=== PATIENT | female | born 1950 | race Caucasian/White ===

== ENCOUNTER 2019-03-24 12:42 | Inpatient (IN) | payer OTHER ==
[~2019-03-24] VITALS: Ht 149.9 cm; Wt 108.3 kg
[2019-03-24] MEDS: SODIUM CHLORIDE 0.9% 1,000 ML IV SCH
[2019-03-24] MEDS ORDERED: MORPHINE SULFATE 4 MG/ML SYR/VIAL IV ONE (13:00)
[2019-03-24] MEDS ORDERED: ONDANSETRON HCL 4 MG/2 ML VIAL IV ONE (13:00)
[2019-03-24 13:08] LABS: Basophils # (auto) 0.1 uL; Basophils % (auto) 0.7 % (0.0-2.0); Eosinophils # (auto) 0.6 uL; Eosinophils % (auto) 6.7 % (0.0-7.0); Hematocrit 45.9 % (36.0-46.0); Hemoglobin 15.2 g/dL (12.2-16.2); Lymphocytes # (auto) 1.9 uL; Lymphocytes % (auto) 21.6 % (10.0-50.0); Mean Corpuscular Hemoglobin 28.3 pg (28.0-32.0); Mean Corpuscular Hgb Conc. 33.2 g/dL (32.0-36.0); Mean Corpuscular Volume 85.4 fL (80.0-100.0); Monocytes # (auto) 0.5 uL; Neutrophils # (auto) 5.8 uL; Nucleated Red Blood Cells % 0.1 %; Platelet Count (auto) 348 10^3/uL (140-450); Red Blood Cells 5.38 10^6/uL (4.0-5.20); Red Cell Distribution Width 15.6 % (11.8-14.3); White Blood Cell 8.9 10^3/uL (4.4-10.8)
[2019-03-24 13:25] LABS: INR < 0.93 (0.9-1.15); Partial Thromboplastin Time 23.2 sec (23.64-32.05)
[2019-03-24 13:36] LABS: Albumin 3.6 g/dL (3.4-5.0); Calcium 9.2 mg/dL (8.5-10.1); Magnesium 2.5 mg/dL (1.6-2.6); Potassium 4.5 mmol/L (3.5-5.1)
[2019-03-24 13:39] LABS: Bilirubin, Total 0.3 mg/dL (0.2-1.0); Total Protein 7.2 g/dL (6.4-8.2)
[2019-03-24] MEDS ORDERED: MORPHINE SULF INJ 2 MG/ML SYRINGE 1ML IV PRN (15:30)
[2019-03-24] MEDS ORDERED: NITROGLYCERIN 0.4 MG SL TAB SL PRN (15:30)
--- NOTE | 2019-03-24 17:10 | NUR ---
Telemetry admit from ER Patient admitted to Telemetry unit. Patient oriented to primary RN, unit, room, bed, and unit policies regarding patient care and visiting hours. Patient now on continuous telemetry monitoring, tele box #4 and telemetry reading on arrival to unit is SR in the 80's. Patient placed on bedside oxygen, weighed by bed scale and encouraged to call if they need something. Bed in lowest, locked position with side rails up x2. Fall precautions in place and call light within reach. All questions and concerns addressed, patient verbalized understanding.Will continue to monitor Q1hr/PRN.
[2019-03-24 17:11] LABS: Urine Bacteria MANY /hpf (None Seen); Urine Blood Negative /uL (Negative); Urine Mucus FEW (None Seen); Urine Specific Gravity 1.018 (1.001-1.035); Urine WBC 31 /hpf (0 - 5)
[2019-03-24 17:21] VITALS: BP 142/73
--- NOTE | 2019-03-24 17:50 | NUR ---
PAGED Paged on-call hospitalist regarding antibiotic for UTI and if patient should be on fluids considering she will be NPO at midnight. Awaiting call back.
[2019-03-24 18:10] VITALS: BP 142/73
[2019-03-24] MEDS ORDERED: OME20GT GT (18:34)
[2019-03-24] MEDS ORDERED: MELO1TAB56 PO (18:34)
--- NOTE | 2019-03-24 18:58 | NUR ---
EYE PAIN Patient c/o right eye pain, "it feels like something is in my eye". Flushed eye out and lifted up right upper lid, foreign body seen and removed with sterile q-tip. Patient states "it feels much better".
--- NOTE | 2019-03-24 19:22 | NUR ---
CLOSING NOTE Endorsed care of patient to NOC Naye CLARKE.
--- NOTE | 2019-03-24 19:50 | NUR ---
Opening Shift Note Assumed care of patient, awake and alert. No S/S of distress/SOB or pain. Instructed on POC and to call for assist PRN, will continue to monitor for changes Q1hr and PRN.
[2019-03-24 20:00] VITALS: BP 98/57
[2019-03-24 21:30] VITALS: BP 91/57
[2019-03-24] MEDS ORDERED: SODIUM CHLORIDE 0.9% 1,000 ML IV ONE (21:30)
--- NOTE | 2019-03-24 22:19 | NUR ---
NEW ORDERS RECEIVED FROM DR. Lamien SHAY. NS AT 100ML IV . LEVAQUIN 500MG IV DAILY. ORDERS READ BACK.
[2019-03-24] MEDS ORDERED: LEVOFLOXACIN 500MG 100 ML IV ONE (22:45)
[2019-03-25 05:00] VITALS: BP 116/65
--- NOTE | 2019-03-25 07:15 | NUR ---
REPORT GIVEN TO JACOBY CLARKE
--- NOTE | 2019-03-25 07:22 | NUR ---
OPENING NOTE Assumed care of patient from NOC RNNaye. Patient awake and alert with no S/S of distress/SOB. C/O of left leg pain 7/10 on adult pain scale, will administer prn pain medication as ordered. Nasal cannula in place, connected to 2L O2. Fay catheter intact/patent and hung below bed. Instructed on POC and to call for assist PRN, verbalized understanding. Bed in lowest, locked position with side rails up x2. Fall precautions in place and call light within reach. Will continue to monitor for changes Q1hr and PRN.
[2019-03-25 07:45] VITALS: BP 98/57
[2019-03-25] MEDS: SODIUM CHLORIDE 0.9% 1,000 ML IV SCH ×2 (08:50→18:52)
[2019-03-25] MEDS: MORPHINE SULF INJ 2 MG/ML SYRINGE 1ML IV PRN ×2 (08:50→15:39)
[2019-03-25] MEDS: ONDANSETRON HCL 4 MG/2 ML VIAL IV PRN ×2 (08:51→15:39)
[2019-03-25 09:00] VITALS: BP 122/66
[2019-03-25] MEDS ORDERED: ENOXAPARIN SOD 30 MG/0.3 ML SYRINGE SC SCH (10:00)
[2019-03-25] MEDS: FAMOTIDINE 20 MG TAB PO SCH (10:04)
[2019-03-25 10:05] LABS: Basophils # (auto) 0 uL; Basophils % (auto) 0.3 % (0.0-2.0); Eosinophils # (auto) 0.4 uL; Eosinophils % (auto) 4.5 % (0.0-7.0); Hematocrit 44.4 % (36.0-46.0); Hemoglobin 14.7 g/dL (12.2-16.2); Lymphocytes # (auto) 1.5 uL; Lymphocytes % (auto) 17.7 % (10.0-50.0); Mean Corpuscular Hemoglobin 28.5 pg (28.0-32.0); Mean Corpuscular Hgb Conc. 33.1 g/dL (32.0-36.0); Monocytes # (auto) 0.5 uL; Monocytes % (auto) 6.5 % (0.0-12.0); Neutrophils # (auto) 5.8 uL; Nucleated Red Blood Cells % 0.1 %; Platelet Count (auto) 294 10^3/uL (140-450); Red Blood Cells 5.17 10^6/uL (4.0-5.20); Red Cell Distribution Width 16.2 % (11.8-14.3); White Blood Cell 8.2 10^3/uL (4.4-10.8)
[2019-03-25 10:20] LABS: INR 0.97 (0.9-1.15); Partial Thromboplastin Time 25.1 sec (23.64-32.05)
[2019-03-25 10:26] LABS: Albumin 3.1 g/dL (3.4-5.0); Calcium 8.4 mg/dL (8.5-10.1); Potassium 4.4 mmol/L (3.5-5.1)
[2019-03-25 10:39] LABS: BUN/Creatinine Ratio 18.4; Total Protein 6.4 g/dL (6.4-8.2)
[2019-03-25 10:42] LABS: Bilirubin, Total 0.4 mg/dL (0.2-1.0)
[2019-03-25 13:00] VITALS: BP 110/50
--- NOTE | 2019-03-25 16:10 | NUR ---
PT Per PT, Vern, patient in "a lot of pain" with movement. States that recent morphine administered did not help enough with pain, "she is fine if she is laying still but the minute she tries to move the pain is too severe". Recommends patient stay additional day and will attempt to "work with patient tomorrow".
--- NOTE | 2019-03-25 16:13 | NUR ---
Discharge planning per consult, patient has orders to dc to SNF upon discharge. Referral faxed to [facility], placed a follow up call, spoke to Castillo and was advised that they will accept this patient to room [address] Joe Felder. Obtained auth for [facility]([phone]/fax [phone]. Please fax PT notes when available to both [facility] and [facility] [phone]. Auth obtained for [facility] transportation upon discharge-[id number] [phone]). Please contact telephone station repairer [facility] [place] - at [phone] if you have any additional questions or concerns. Addendum: 03/25/19 at 1626 by ROSENDA KISER Amended: Links added.
[2019-03-25 17:00] VITALS: BP 114/67
--- NOTE | 2019-03-25 17:16 | NUR ---
AWARE Dr. Correa aware of PT recommendations, agrees to holding off discharge until tomorrow 03/26/19.
[2019-03-25] MEDS: ACETAMINOPHEN 325 MG TAB PO PRN (17:25)
[2019-03-25] MEDS: LEVOFLOXACIN 250MG 50 ML IV SCH (21:28)
[2019-03-25 22:00] VITALS: BP 99/57
[2019-03-26] MEDS: SODIUM CHLORIDE 0.9% 1,000 ML IV SCH ×2 (04:28→16:51)
[2019-03-26 05:00] VITALS: BP 135/71
--- NOTE | 2019-03-26 07:37 | NUR ---
REPORT GIVEN TO DAY SHIFT RN
--- NOTE | 2019-03-26 07:45 | NUR ---
RECEIVED PATIENT ALERT AND ORIENTED X4, NOT IN DISTRESS, DENIED PAIN, CLEAR LUNG SOUNDS IN BILATERAL LUNG LOBES, RR=18, DEEP BREATHING AND COUGHING ENCOURAGED, DEMONSTRATED UNDERSTANDING, HEAR PHYLLIS=84 SR ON TELE MONITOR, DENIED CP AND SOB, ABDOMEN SOFT WITH ACTIVE BS, LAST BM=03/24/19 REPORTED, DEAN CATH IN PLACE PATENT, DRAINING CLEAR YELLOW URINE, KEEP LT. HIP IMMOBILIZED, SKIN INTACT WARM TO TOUCH, RESTING ON BED, DENIED PAIN AT THIS MOMENT, HEAD OF BED ELEVATED, BED ON LOWER POSITION, RAILS UP X2, CALL LIGHT ON REACH, PENDING D/C ORDERED, WILL CONTINUE MONITORING.
[2019-03-26 08:00] VITALS: BP 127/64
[2019-03-26 08:14] VITALS: BP 127/64
[2019-03-26] MEDS: FAMOTIDINE 20 MG TAB PO SCH (09:35)
[2019-03-26] MEDS: ENOXAPARIN SOD 40 MG/0.4 ML SYRINGE SC SCH (09:35)
[2019-03-26] MEDS: MORPHINE SULF INJ 2 MG/ML SYRINGE 1ML IV PRN (09:36)
[2019-03-26] MEDS: ONDANSETRON HCL 4 MG/2 ML VIAL IV PRN (09:36)
--- NOTE | 2019-03-26 10:25 | NUR ---
UNABLE TO WORK WITH PT, PRN PAIN MEDICATION WAS GIVEN PRIOR PT ACTIVITY, POOR TOLERANCE NOTED, DR. ESPARZA WAS CONTACTED FOR D/C FOLLOW UP, WILL CONTINUE MONITORING.
[2019-03-26 13:00] VITALS: BP 117/70
--- NOTE | 2019-03-26 13:00 | NUR ---
D/C HOLD REPORTED BY , TOLERATED LUNCH TRAY WELL, RESTING ON BED, WATCHING TV, WILL CONTINUE MONITORING.
[2019-03-26 16:49] VITALS: BP 111/70
[2019-03-26] MEDS: HYDROcodone-ACET 5/325MG TAB PO PRN (16:50)
--- NOTE | 2019-03-26 17:51 | NUR ---
TOLERATED RANGE OF MOTION WITH ASSISTANCE, PARTIAL BED BATH PROVIDED, SKIN CLEANED AND DRY, APPLIED Z-GUARD CREAM ON BACK AND SACRUM, TOLERATED AND COOPERATED WELL, WILL CONTINUE MONITORING.
--- NOTE | 2019-03-26 19:30 | NUR ---
Opening Shift Note Assumed care of patient, awake and alert. Watching TV. No S/S of distress/SOB or pain.Encouraged repositioning from side to side. IV patent and infusing per orders. Instructed on POC and to call for assist PRN, will continue to monitor for changes Q1hr and PRN.
[2019-03-26 22:28] VITALS: BP 102/66
[2019-03-26] MEDS: LEVOFLOXACIN 250MG 50 ML IV SCH (23:00)
[2019-03-27] MEDS: SODIUM CHLORIDE 0.9% 1,000 ML IV SCH ×3 (00:30→20:30)
[2019-03-27 06:03] VITALS: BP 135/74
--- NOTE | 2019-03-27 08:00 | NUR ---
ASSESSMENT NOTE PATIENT IS ALERT ORIENTED X4, RESTING IN BED COMFORTABLY, ABLE TO VERBALIS HER NEEDS, ABLE TO SELF REPOSITION NEEDED, CALL LIGHT WITHIN REACH, PT ON PAIN MANAGEMENT AT ALL TIMES NEEDED
[2019-03-27 08:49] VITALS: BP 130/79
[2019-03-27] MEDS: ENOXAPARIN SOD 40 MG/0.4 ML SYRINGE SC SCH (09:05)
[2019-03-27] MEDS: FAMOTIDINE 20 MG TAB PO SCH (09:05)
[2019-03-27] MEDS: HYDROcodone-ACET 5/325MG TAB PO PRN (09:06)
--- NOTE | 2019-03-27 09:15 | NUR ---
DR ESPARZA IS HERE FOLLOWING UP ON PT, INFORM ME TO HAVE PATIENT TO BE TRANSFERRED TO SNF
--- NOTE | 2019-03-27 09:45 | NUR ---
PHYSICAL THERAPY AT BED SIDE ASSISTING PT TO GET OUT OF BED, TO SIT ON CHAIR AT BED SIDE
--- NOTE | 2019-03-27 11:10 | NUR ---
PHYSICAL THERAPY NOTES FAXED TO [facility]
[2019-03-27] MEDS: ONDANSETRON HCL 4 MG/2 ML VIAL IV PRN (11:27)
--- NOTE | 2019-03-27 11:27 | NUR ---
BACK TO BED WITH 2 PHYSICAL THERAPY ASSISTANCE, PT TOLERATED WELL.
--- NOTE | 2019-03-27 12:21 | NUR ---
CALLED [facility], REPORT GIVEN TO LUIS ANGEL Chakraborty WITH ALL PATIENT'S UPDATE
[2019-03-27 12:25] VITALS: BP 128/70
--- NOTE | 2019-03-27 12:25 | NUR ---
CALLED [facility] A BRIEF MESSAGE LEFT TO HAVE THEM CALL US BACK
--- NOTE | 2019-03-27 13:05 | NUR ---
[facility] A BRIEF MESSAGE LEFT TO HAVE THEM CALL ME BACK TO ARRANGE TIME OF CASHIER AND WAITER/WAITRESS
--- NOTE | 2019-03-27 14:26 | NUR ---
CALLED [facility] AGAIN, A BRIEF MESSAGE LEFT TO HAVE THEM CALL US BACK
--- NOTE | 2019-03-27 16:29 | NUR ---
CALLED [facility] AT [phone] MESSAGE LEFT TO CALL US BACK
--- NOTE | 2019-03-27 16:33 | NUR ---
SHARIF FROM [facility] CALLED BACK, TRY TO CALL THE [facility], THERE WAS NO ANSWER, SAID ITS POSSIBLE THAT THEY ARE CLOSED. AND THERE IS NOTHING WE CAN DO
--- NOTE | 2019-03-27 16:46 | NUR ---
SPOKE WITH DR YOUSSEF OVER THE PHONE, MADE AWARE THAT DID SPOKE WITH SHARIF IN [facility], AND THE [facility] IS CLOSED, SAID TO CALL OUR OWN INTERACTIVE VIDEO TECHNICIAN OPERATING ROOM NURSE
--- NOTE | 2019-03-27 16:50 | NUR ---
PAGE MARBLE CUTTER VAMP CUT OUT WORKER
[2019-03-27 16:59] VITALS: BP 95/65
--- NOTE | 2019-03-27 17:05 | NUR ---
MESHA FROM DIRECTOR TALENT YE [employer] BACK SAID TO CALL [facility]
--- NOTE | 2019-03-27 17:23 | NUR ---
CALLED [facility], SPOKE WITH ELDER, TRANSPORATION WILL BE HERE AT 193
[2019-03-27] MEDS: ACETAMINOPHEN 325 MG TAB PO PRN (18:23)
--- NOTE | 2019-03-27 18:50 | NUR ---
PATIENT FOUND SHOCKING ON A SMALL PIECE OF TURKEY, PT WENT IN A SYSTOLE FOR 5 SECONDS, FOUND ON 78% SATURATION ON ROOM AIR, CALLED REPARATORY STAT, OXYGEN MASK APPLIED, PATIENT RECOVER QUICKLY FROM THE ASPIRATION EPISODE
--- NOTE | 2019-03-27 19:10 | NUR ---
TRY TO WAEN PATIENT FROM THE OXYGEN, SATURATION WENT DOWN FROM 97% TO 84, OXYGEN APPLIED BACK ON
--- NOTE | 2019-03-27 19:15 | NUR ---
[facility] ARE, MADE AWARE THAT PT IS STAYING, CALLED THE DISPATCH, SPOKE WITH NATALY
--- NOTE | 2019-03-27 19:20 | NUR ---
PAGE DR Bishop SHAY REGARDING THAT PT WILL STAY HERE FOR FURTHER EVALUATION
--- NOTE | 2019-03-27 19:30 | NUR ---
Opening Shift Note Assumed care of patient, awake and alert x4. Wearing oxygen mask @ 6L. saturation is 95%.Patient states " Iv always had this problem with my oxygen and my sinuses. And I wasnt choking earlier I was just dry heaving from an empty stomach, it happens all the time." Waiting on Dr. Correa to return the call. Spoke with facility at [facility] and updated them on status and will notify them when I have more answers. No S/S of distress/SOB or pain. Instructed on POC and to call for assist PRN, will continue to monitor for changes Q1hr and PRN.
--- NOTE | 2019-03-27 19:36 | NUR ---
PT CONTINUE STABLE, CONTINUE MONITORING
--- NOTE | 2019-03-27 19:47 | NUR ---
PAGE DR ESPARZA AGAIN, REGARDING PATIENT SHOCKING ON HER FOOD, CONTINUE MONITORING
[2019-03-27] MEDS ORDERED: LEVOFLOXACIN 500MG 100 ML IV ONE (20:30)
--- NOTE | 2019-03-27 20:34 | NUR ---
Spoke with Dr. King. Holding discharge tonight. New orders for CT angio chest and pulmonary consult carried out. Will notify [facility] facility as well.
[2019-03-27 22:00] VITALS: BP 125/76
[2019-03-27] MEDS: LEVOFLOXACIN 250MG 50 ML IV SCH (22:09)
[2019-03-27] MEDS ORDERED: IOHEXOL 350 MG/ML 100ML IJ ONE (23:36)
[2019-03-28 05:20] VITALS: BP 138/82
--- NOTE | 2019-03-28 05:56 | NUR ---
Patient placed on NC earlier in the night. No SOB noted. Denies pain. No heaving/choking episodes. Will continue to monitor
[2019-03-28] MEDS: SODIUM CHLORIDE 0.9% 1,000 ML IV SCH ×2 (06:30→16:03)
[2019-03-28 09:00] VITALS: BP 126/64
[2019-03-28] MEDS: FAMOTIDINE 20 MG TAB PO SCH (10:09)
[2019-03-28] MEDS: ENOXAPARIN SOD 40 MG/0.4 ML SYRINGE SC SCH (10:09)
[2019-03-28] MEDS: HYDROcodone-ACET 5/325MG TAB PO PRN ×2 (11:13→21:34)
[2019-03-28 13:00] VITALS: BP_SYST 129; BP_SYST 152; BP_DIAS 74; BP_DIAS 78
--- NOTE | 2019-03-28 15:44 | NUR ---
Discharge planning per consult, patient has orders to dc to SNF. Referral faxed, [facility] accepted patient to room [address] Joe Felder. Auth obtained from [facility]-[id number]. Transportation was arranged via [facility] for Maribel, grape picker at 6pm. Auth obtained- [id number]. Nurse Bonds advised of dc matt. Addendum: 03/28/19 at 1547 by ROSENDA KISER Amended: Links added.
--- NOTE | 2019-03-28 15:56 | NUR ---
CT angio/PE/DC Received report regarding CT angio that patient has a Right pulmonary embolism. Notified Dr. Correa who stated to hold the discharge until tomorrow and give the patient Lovenox 1 mg/kg bodyweight SQ every 12 hours. Will notify patient and case work aide Kasandra regarding patient not being transferred today.
[2019-03-28 17:00] VITALS: BP 137/76
--- NOTE | 2019-03-28 19:45 | NUR ---
Opening Shift Note Assumed care of patient, awake and alert, oriented x 4, follows directions, clear speech. On oxygen at 3L via NC, even and unlabored respirations., no s/s of distress or SOB. Fay catheter intact, draining to gravity, no kinks. Patient turned with moderate assistance, sacrum intact, no redness noted. Patient reports getting up with physical therapy to chair with max assistance. Bed low locked position with side rails up x 2 and call light within reach, bed alarm on. Instructed on POC and to call for assist PRN, will continue to monitor for changes Q1hr and PRN.
[2019-03-28] MEDS: ENOXAPARIN SOD 120 MG/0.8 ML SYRINGE SC SCH (21:34)
[2019-03-28] MEDS: LEVOFLOXACIN 250MG 50 ML IV SCH (21:34)
[2019-03-28 22:00] VITALS: BP 139/94
[2019-03-29] MEDS: SODIUM CHLORIDE 0.9% 1,000 ML IV SCH ×2 (02:56→12:09)
[2019-03-29 05:37] VITALS: BP 142/81
--- NOTE | 2019-03-29 07:05 | NUR ---
Closing note patient resting in bed with oxygen on at 3L via NC with even and unlabored respirations, no d/d of distress. Bed low locked position with side rails up x 2 and call light within reach. Endorsed care to day shift
[2019-03-29 09:00] VITALS: BP 145/85
[2019-03-29] MEDS: FAMOTIDINE 20 MG TAB PO SCH (10:05)
[2019-03-29] MEDS: HYDROcodone-ACET 5/325MG TAB PO PRN ×2 (10:05→15:01)
[2019-03-29] MEDS: ENOXAPARIN SOD 120 MG/0.8 ML SYRINGE SC SCH (10:05)
--- NOTE | 2019-03-29 11:46 | NUR ---
Nutrition Assessment Notes Please see attached link for complete assessment Est. Needs ABW [id number] kcal (17-20 kcal/kgBW), 76-83 gms pro (1.0-1.1 gms/kgBW). Will continue to monitor pertinent labs and reassess nutrient need prn Addendum: 03/29/19 at [address] Amended: Links added.
[2019-03-29 13:00] VITALS: BP 136/72
--- NOTE | 2019-03-29 13:47 | NUR ---
Discharge/Report Report given to Maeve at [facility]. Patient is to be picked up by [facility] at 1400. IVs removed. Patient was notified of shredder picker.
--- NOTE | 2019-03-29 14:45 | NUR ---
Discharge planning per consult, patient has orders to dc to SNF. Patient's discharge was held over due a lab abnormality on 03.28.19. Patient is cleared for discharge today. Transportation has been arranged with [facility] and per Elena ([facility]) patient is scheduled to be picked up at 2 pm. Nurse Bonds advised of discharge plan. Addendum: 03/29/19 at 1449 by ROSENDA KSIER Amended: Links added.
--- NOTE | 2019-03-29 15:15 | NUR ---
DISCHARGE PATIENT WAS DISCHARGED. SHE WAS GIVEN ALL PAPERWORK AND TRANSPORT PACKET WAS GIVEN TO [facility]. IVS REMOVED. ALL BELONGINGS WENT WITH PATIENT.
== END 2019-03-29 15:15 | DRG 559 ==
LOC: ER 12:42 → TELE 12:43 → TELE-EAST 17:04
PROVIDERS: ADMIT Internal Medicine; ATTEND Internal Medicine
DX: M97.02XA Periprosthetic fracture around internal prosthetic left hip joint, initial encounter (principal); S72.112A Displaced fracture of greater trochanter of left femur, initial encounter for closed fracture; J96.01 Acute respiratory failure with hypoxia; I26.99 Other pulmonary embolism without acute cor pulmonale; S72.002A Fracture of unspecified part of neck of left femur, initial encounter for closed fracture; S72.22XA Displaced subtrochanteric fracture of left femur, initial encounter for closed fracture; Z68.42 Body mass index [BMI] 45.0-49.9, adult; E66.01 Morbid (severe) obesity due to excess calories; Z96.653 Presence of artificial knee joint, bilateral; Z60.2 Problems related to living alone; W18.39XA Other fall on same level, initial encounter; Z96.642 Presence of left artificial hip joint; M19.90 Unspecified osteoarthritis, unspecified site; Z82.0 Family history of epilepsy and other diseases of the nervous system; Z82.49 Family history of ischemic heart disease and other diseases of the circulatory system; Z83.3 Family history of diabetes mellitus; Z88.0 Allergy status to penicillin; Z79.899 Other long term (current) drug therapy; Y93.89 Activity, other specified; Y92.89 Other specified places as the place of occurrence of the external cause; Y99.8 Other external cause status
CPT/HCPCS: 36415; 71045; 71275; 72170; 73700; 80053; 81001; 83735; 85025; 85610; 85730; 93005; 94761; 96374; 96375; 97110; 97116; 97530; G0378; J1956; J2405

== ENCOUNTER 2019-04-21 21:44 | Inpatient (IN) | payer OTHER ==
[~2019-04-21] VITALS: Ht 177.8 cm; Wt 106.0 kg
[~2019-04-21 21:44] MED LIST: MELO1TAB56 PO; OME20GT GT
[2019-04-21] MEDS ORDERED: VERAPAMIL 2.5MG/ML INJ 2ML VIAL IV ONE (22:15)
[2019-04-21 22:34] LABS: Basophils # (auto) 0.1 uL; Basophils % (auto) 0.6 % (0.0-2.0); Eosinophils # (auto) 0.5 uL; Eosinophils % (auto) 4.6 % (0.0-7.0); Hematocrit 43.5 % (36.0-46.0); Hemoglobin 14.5 g/dL (12.2-16.2); Lymphocytes # (auto) 2.9 uL; Lymphocytes % (auto) 27.7 % (10.0-50.0); Mean Corpuscular Hemoglobin 28.6 pg (28.0-32.0); Mean Corpuscular Hgb Conc. 33.4 g/dL (32.0-36.0); Mean Corpuscular Volume 85.6 fL (80.0-100.0); Monocytes # (auto) 0.7 uL; Monocytes % (auto) 6.7 % (0.0-12.0); Neutrophils # (auto) 6.4 uL; Neutrophils % (auto) 60.4 % (37.0-80.0); Platelet Count (auto) 363 10^3/uL (140-450); Red Blood Cells 5.08 10^6/uL (4.0-5.20); Red Cell Distribution Width 14.7 % (11.8-14.3); White Blood Cell 10.6 10^3/uL (4.4-10.8)
[2019-04-21 22:51] LABS: Albumin 3.2 g/dL (3.4-5.0); Anion Gap 12 (5-15); Blood Urea Nitrogen 18 mg/dL (7-18); Calcium 8.4 mg/dL (8.5-10.1); Carbon Dioxide 20 mmol/L (21-32); Chloride 111 mmol/L (98-107); Glucose 159 mg/dL (74-106); Magnesium 2.1 mg/dL (1.6-2.6); Potassium 3.8 mmol/L (3.5-5.1); Sodium 143 mmol/L (136-145)
[2019-04-21 22:57] LABS: Alanine Aminotransferase 25 U/L (13-56); Alkaline Phosphatase 143 U/L (45-117); Aspartate Aminotransferase 35 U/L (15-37); BUN/Creatinine Ratio 16.2; Bilirubin, Total 0.3 mg/dL (0.2-1.0); GFR African American 62 mL/min; GFR Non-African American 52 mL/min; Total Protein 6.6 g/dL (6.4-8.2)
[2019-04-22] VITALS (7 sets, daily range): BP systolic 115–130; BP diastolic 67–81
[2019-04-22] MEDS ORDERED: ONDANSETRON HCL 4 MG/2 ML VIAL IV PRN (01:00)
[2019-04-22] MEDS ORDERED: TEMAZEPAM 15 MG CAP PO PRN (01:00)
[2019-04-22] MEDS ORDERED: NITROGLYCERIN 0.4 MG SL TAB SL PRN (01:00)
[2019-04-22] MEDS ORDERED: MORPHINE SULF INJ 2 MG/ML SYRINGE 1ML IV PRN (01:00)
[2019-04-22] MEDS ORDERED: ACETAMINOPHEN 325 MG TAB PO PRN (01:00)
[2019-04-22 01:26] LABS: INR 1.03 (0.9-1.15); Partial Thromboplastin Time 32.3 sec (23.64-32.05)
--- NOTE | 2019-04-22 03:40 | NUR ---
Telemetry admit from ER JADAYBRON admitted to Telemetry unit after SBAR received. Patient oriented to ONIEL BECKER, primary RN, unit, room, bed, and unit policies regarding patient care and visiting hours. Patient now on continuous telemetry monitoring, tele box #40 and telemetry reading on arrival to unit is SR. Patient weighed by bed scale and encouraged to call if they need something. All questions and concerns addressed, patient verbalized understanding. Pt has no current complaints and shows no S/S of distress.
[2019-04-22] MEDS ORDERED: OME20GT PO (04:05)
--- NOTE | 2019-04-22 04:10 | NUR ---
MRSA swab sent to lab.
[2019-04-22] MEDS ORDERED: INFLUENZA QUAD 2019-2020 0.5ml SYRG IM ONE (04:30)
--- NOTE | 2019-04-22 07:45 | NUR ---
Opening Shift Note Assumed care of patient, awake and alert. No S/S of distress/SOB or pain. Bed in lowest position, breaks locked, side rails up x2, call light with in reach. Instructed on POC and to call for assist PRN, will continue to monitor for changes Q1hr and PRN.
[2019-04-22] MEDS ORDERED: LOSARTAN POTASSIUM 25 MG TAB PO SCH (10:00)
[2019-04-22] MEDS: FAMOTIDINE 20 MG TAB PO SCH ×2 (10:52→21:53)
[2019-04-22] MEDS: RIVAROXABAN 15 MG TAB PO SCH (10:52)
[2019-04-22] MEDS: METOPROLOL TARTRATE 25 MG TAB PO SCH ×2 (10:53→21:53)
--- NOTE | 2019-04-22 11:15 | NUR ---
Doctor Haley packer.
--- NOTE | 2019-04-22 11:30 | NUR ---
Spoke with Doctor Haley, New orders received see emar for orders.
[2019-04-22] MEDS ORDERED: ADENOSINE 90 MG in GIVE UN-DILUTED 0 ML IV STA (14:33)
--- NOTE | 2019-04-23 05:02 | NUR ---
Scheduled EKG performed after explaining the necessity and procedure. Print out placed in cardio section of hard chart.
[2019-04-23 05:43] VITALS: BP 145/79
[2019-04-23 07:02] LABS: Calcium 9.2 mg/dL (8.5-10.1)
[2019-04-23 07:07] LABS: BUN/Creatinine Ratio 16.7; Bilirubin, Total 0.3 mg/dL (0.2-1.0); Total Protein 6.4 g/dL (6.4-8.2)
[2019-04-23 08:20] VITALS: BP 141/78
[2019-04-23 09:00] VITALS: BP 141/78
[2019-04-23] MEDS: FAMOTIDINE 20 MG TAB PO SCH (09:36)
[2019-04-23] MEDS: METOPROLOL TARTRATE 25 MG TAB PO SCH (09:36)
[2019-04-23] MEDS: RIVAROXABAN 15 MG TAB PO SCH (09:36)
[2019-04-23 13:00] VITALS: BP 125/87
[2019-04-23] MEDS ORDERED: MET25T PO (13:19)
[2019-04-23] MEDS ORDERED: RIV15T PO (13:19)
--- NOTE | 2019-04-23 14:30 | NUR ---
Per pharmacy Influenza vaccine not available.
[2019-04-23 14:42] VITALS: BP 125/87
--- NOTE | 2019-04-23 15:00 | NUR ---
Per patient, already has home health that sees her once a week, Patient declines Social service consult.
--- NOTE | 2019-04-23 15:30 | NUR ---
Discharge home Medication Spoke with doctor Bauman regarding home medications, Per doctor Mitul patient is to discontinue losartan and resume metoprolol. New orders in place.
[2019-04-23 17:00] VITALS: BP 142/77
--- NOTE | 2019-04-23 17:50 | NUR ---
Discharge instructions given as ordered. Encourage to follow up with PMD as instructed. All questions and concerns addressed. Patient verbalized understanding. Medication reconciliation form completed and copy given to patient. Home medications held in Pharmacy returned to patient, and no vaccines given. IV removed with catheter intact, pressure dressing applied. Telemetry unit returned to ICU. Patient taken to vehicle via wheelchair with all personal belongings, accompanied by staff and friend. No distress noted at time of departure.
--- NOTE | 2019-04-25 09:11 | NUR ---
o/c note did not get a page for this pt
== END 2019-04-23 17:50 | disposition home or self-care (01) | DRG 310 ==
LOC: EDBD 21:44 → ER 21:49 → TELE 21:50 → TELE-CENTR 04-22 03:40
PROVIDERS: ADMIT Nurse Practitioner; ATTEND Hospitalist
DX: I47.1 Supraventricular tachycardia (principal); I48.20 Chronic atrial fibrillation, unspecified; T44.7X6A Underdosing of beta-adrenoreceptor antagonists, initial encounter; M19.90 Unspecified osteoarthritis, unspecified site; Z83.3 Family history of diabetes mellitus; Z80.9 Family history of malignant neoplasm, unspecified; Z82.0 Family history of epilepsy and other diseases of the nervous system; Z79.01 Long term (current) use of anticoagulants; Z82.49 Family history of ischemic heart disease and other diseases of the circulatory system; Z88.0 Allergy status to penicillin; Y92.89 Other specified places as the place of occurrence of the external cause
CPT/HCPCS: 36415; 71045; 78452; 80053; 83735; 83880; 84436; 84443; 84484; 85025; 85610; 85730; 87081; 92960; 93005; 93017; 93306; 97116; 97530; 99291; G0378; J0153